=== PATIENT | male | born 1975 | race Caucasian/White ===

== ENCOUNTER 2024-01-05 04:25 | Day surgery (SDC) | payer OTHER ==
[2023-12-28 12:56] VITALS: BMI 38.9
[2024-01-05 10:35] VITALS: TEMP 97.9
[2024-01-05 11:47] LABS: BASO % 0.4 % (0-2.0); HEMATOCRIT 42.7 % (35.4-49); HEMOGLOBIN 14.7 GM/dL (11.7-16.9); LYMPH % 24.4 % (8-40); MCH 29.1 pg (25.7-33.7); MCHC 34.5 g/dl (32.0-35.9); MEAN CELL VOLUME 84.5 fl (80-96); MEAN PLT VOLUME 7.8 fl (7.5-11.1); MONO % 8.9 % (3.8-10.2); NEUT % 63.3 % (42.8-82.8); PLATELET COUNT 153 10^3/uL (134-434); RBC 5.05 M/mm3 (4.00-5.60); RDW 13.2 % (11.9-15.9); WHITE BLOOD COUNT 5.4 K/mm3 (4.0-10.0)
[2024-01-05 11:50] VITALS: BP 125/72; PULSE 67; RESP 18
[2024-01-05 12:11] LABS: POTASSIUM 4.2 mmol/L (3.5-5.1)
[2024-01-05 12:13] LABS: BLOOD UREA NITROGEN 13.6 mg/dL (7-18); CALCIUM 9.4 mg/dL (8.5-10.1)
[2024-01-05 12:14] LABS: ALBUMIN 3.9 g/dl (3.4-5.0)
[2024-01-05 12:16] LABS: CREATININE 0.8 mg/dL (0.55-1.3)
[2024-01-05 12:18] LABS: BILIRUBIN,TOTAL 0.7 mg/dL (0.2-1); TOT PROT 7.4 g/dl (6.4-8.2)
== END 2024-01-05 11:40 | disposition home or self-care (01) ==
LOC: JASU-ENDO 04:25
PROVIDERS: ATTEND Internal Medicine Gastroenterology
PROC: 3E0H8KZ Introduction of Other Diagnostic Substance into Lower GI, Via Natural or Artificial Opening Endoscopic (ICD-10-PCS; 2024-01-05)
PROC: 0DBN8ZX Excision of Sigmoid Colon, Via Natural or Artificial Opening Endoscopic, Diagnostic (ICD-10-PCS; principal; 2024-01-05 09:15)
DX: Z12.11 Encounter for screening for malignant neoplasm of colon (principal); C18.7 Malignant neoplasm of sigmoid colon; K64.8 Other hemorrhoids
CPT/HCPCS: 36415; 80053; 82378; 82962; 85025; 88305-TC; 88341-TC; 88342-TC